=== PATIENT | male | born 1965 | race Caucasian/White ===

== ENCOUNTER 2023-09-11 11:29 | Outpatient (REF) | payer BC, SELFPAY ==
[2023-09-11 15:21] LABS: Abs Immature Grans 0.04 10^3/uL (0.0-0.06); Absolute Basophil Count 0.03 10^3/uL (0.0-0.2); Absolute Lymphocyte Count 1.32 10^3/uL (1.2-3.4); Absolute Neutrophil Count 2.25 10^3/uL (1.2-6.7); Basophils % 0.7; Eosinophils % 2.4; HCT 46.4 % (40.0-50.0); Lymphocytes % 31.9; MCH 30.9 pg (27.0-33.0); MCHC 34.5 % (32.0-36.0); MCV 90 fL (80-95); MPV 11.7 fL (8.0-11.0); Monocytes % 9.7; Neutrophils % 54.3; Platelet Count 159 10^3/uL (130-400); RBC 5.17 10^6/uL (4.36-5.78); RDW 12.5 % (11.8-14.1); RDW-SD 41.4 fL; WBC 4.14 10^3/uL (4.4-10.8)
[2023-09-11 15:48] LABS: ALT 51 U/L (16-63); AST 23 U/L (15-37); Albumin 4.2 g/dL (3.4-5.0); Alkaline Phosphatase 62 U/L (46-116); BUN 11 mg/dL (7-18); Bilirubin, Total 0.5 mg/dL (0.2-1.0); CREATININE 0.9 mg/dL (0.70-1.30); Calcium 9.5 mg/dL (8.5-10.1); Calculated LDL 81 mg/dL (<100); Chloride 101 mmol/L (98-107); Cholesterol 151 mg/dL (<200); Estimated GFR 100.24 (mL/min/1.73m2); Glucose 120 mg/dL (74-106); HDL Cholesterol 41 mg/dL (40-60); Potassium 4.2 mmol/L (3.5-5.1); Sodium 138 mmol/L (136-145); TSH (W/Ref FT4) 1.63 uIU/mL (0.36-3.74); Total Protein 7.6 g/dL (6.4-8.2); Triglyceride 149 mg/dL (<150)
[2023-09-11 16:24] LABS: Hemoglobin A1C 6.1 % (<5.7)
[2023-09-11 23:27] LABS: PSA, Screening 0.8 ng/mL (<=3.5)
== END 2023-09-11 11:30 | disposition home or self-care (01) ==
LOC: NCHCN 11:29
PROVIDERS: PCP Student in an Organized Health Care Education/Training Program; Visit Provider Student in an Organized Health Care Education/Training Program
DX: E11.9 Type 2 diabetes mellitus without complications (principal); E78.5 Hyperlipidemia, unspecified; Z12.5 Encounter for screening for malignant neoplasm of prostate
CPT/HCPCS: 80053; 80061; 84153; 83036; 84443; 85025

== ENCOUNTER 2024-03-11 09:47 | Outpatient (REF) | payer BC, SELFPAY ==
--- OUTSIDE RECORDS SUMMARY | 2024-03-11 09:52 | XMS_ITS | Encounter Summary ---
Author Organization [facility] Address [address] [place] [id number] Care Team Providers Care Liaison Officer Name Role Phone Unavailable Primary Care Provider Unavailabl e Encounter Details Date Type Department Care Team (Late st Contact Info) Description 09/11/2023 Lab Requisition [facility] - [address] [address] Outr Resulting Lab, Provider Social History Tobacco Use Types Packs/Day Years Used Date Smoking Tobacco: Never Assessed Sex and Gender Information Value Date Recorded Sex Assigned at Not on file Gender Identity Not on file Sexual Orientation Not on file documented as of this encounter Plan of Treatment Not on file documented as of this encounter Procedures Procedure Name Priority Date/Time Associated Diagnosis Comments PSA TOTAL, DIAGNOSTIC Routine 09/11/2023 10:21 EST documented in this encounter Results * PSA TOTAL, DIAGNOSTIC (09/11/2023 10:21 EST) PSA 0.8 <=3.5 ng/mL 09/11/2023 23:23 EST [facility] Blood VENOUS BLOOD / Unknown 09/11/2023 10:21 EST 09/11/2023 21:36 EST Narrative [facility] - 09/11/2023 23:23 EST NOTE: Serum PSA concentration should not be interpreted as absolute evidence for the presence or absence of malignant disease. Assayed on Siemens ADVIA Centaur XPT using chemiluminescent technology.??Values obtained by using different assay methods cannot be used interchangeably. Provider Outr Resulting Lab CHEMISTRY & BLOOD GAS ORDERABLES [facility] [address] [place] [address] documented in this encounter Visit Diagnoses Not on filedocumented in this encounter
--- OUTSIDE RECORDS SUMMARY | 2024-03-11 09:52 | XMS_ITS | Referral Summary ---
Author Organization [facility] Address [address] [place] [address] Care Team Providers Care Repack Room Worker Name Role Phone Unavailable Primary Care Provider Unavailabl e Social History Tobacco Use Types Packs/Day Years Used Date Smoking Tobacco: Never Assessed Sex and Gender Information Value Date Recorded Sex Assigned at Not on file Gender Identity Not on file Sexual Orientation Not on file Plan of Treatment Not on file
--- OUTSIDE RECORDS SUMMARY | 2024-03-11 09:52 | XMS_ITS | Clinical Summary ---
Author Organization [facility] Address [address] [place] [address] Care Team Providers Care Program Clerk Name Role Phone Unavailable Primary Care Provider Unavailabl e Social History Tobacco Use Types Packs/Day Years Used Date Smoking Tobacco: Never Assessed Sex and Gender Information Value Date Recorded Sex Assigned at Not on file Gender Identity Not on file Sexual Orientation Not on file Plan of Treatment Health Maintenance Due Date Last Done Comments Hepatitis C Screen 1965 Hepatitis B Vaccine (1 of 3 - 19+ 3-dose series) 08/14 COVID-19 Vaccine (2022-24 season) 2023
--- OUTSIDE RECORDS SUMMARY | 2024-03-11 09:52 | XMS_ITS | Data Portability ---
Author Organization [facility] Address [address] [place] [facility] [place] [address] Assessment No assessment recorded. Plan of Treatment Reminders Order Date Submit Date Provider Last Modified By Organization Details Last Modified Time Details Appointments Annual Wellness Exam 40 2023 08:00A M Michael Garrido Not available Not available Not available Nurse Visit 20 2023 08:50A M [facility] Nursing Staff Not available Not available Not available Lab lipid panel, serum 2023 024 [facility] (Registration ), [address] [place] [address] [place], [address], 09/18/2023 10:51:40 PSA, serum or plasma 2023 024 [facility] (Registration ), [address] [place] [address] [place], [address], 09/18/2023 10:51:40 CBC w/ auto diff - 2 SST, 1 LAV 2023 024 [facility] (Registration ), [address] [place] [address] [place], [address], 09/11/2023 15:23:59 CMP, serum or plasma 2023 024 [facility] (Registration ), [address] [place] [address] [place], [address], 09/11/2023 15:51:01 TSH, serum, reflex free T4 2023 024 [facility] (Registration ), [address] [place] [address] [place], [address], 09/18/2023 10:51:39 HbA1c (hemoglo bin A1c), blood 2023 024 [facility] (Registration ), [address] [place] [address] [place], [address], 09/12/2023 15:54:45 Referral None recorded . Procedures None recorded . Surgeries None recorded . Imaging None recorded . Medication Orders atorvast atin 10 mg tablet 2023 024 [email or web address] [facility], [address] [place] [address], [address], 09/11/2023 10:58:46 lisinopr il 20 mg-hydro chloroth iazide 25 mg tablet 2023 024 [email or web address] [facility], [address] [place], [address], 09/11/2023 10:58:46 metformi n 500 mg tablet 2023 024 [facility], [address] [place], [address], 09/11/2023 10:58:46 Patient Targets Encounter Date Encounter Id Patient Goals Patient Target Last Modified By Organization Details Last Modified Time Quit checking tobacco no later than 08/24/2023. [email or web address] Not available 09/11/2023 10:51:19 Patient Instructions Encounter Date Encounter Id Patient Instructions Last Modified By Organization Details Last Modified Time 09/11/2023 [id number] Continue Diabete s based diet. Encourage 50% of your plate should be vegetables, but avoiding potatoes, peas, and corn as they are starchier vegetable sources. -Engage in regular aerobic exercise that requires open mouth breathing 200-300 minutes per week. I'd suggest doing it in the middle of the day for stress relief. -Any problems or concerns, give us a call first thing in morning if same day appt. needed or you can also message through the patient portal as you have previously done. Not available 09/11/2023 10:18:17 11/21/2023 [id number] Regular schedule of ibuprofen 600 mg three times a day with food. You can also take Tylenol at the same time. -Ice and or heat. Avoid aggravating stimulus. IF this is still terrible by middle of weak, follow up with me and we can trial an injection, order an xray. [email or web address] Not available 11/21/2023 14:56:25 Reason for Referral None Reported. Results Created Date Observation Date Name Description Value Unit Range Abnormal Flag LastModifiedBy Organization Detail LastModifiedTime 09/11/19 24 09/11/2023 COMPL ETE BLOOD COUNT W/DIF F WBC 4.14 10_3/ uL 4.4-10 .8 low Not Available [address] [place], [address] 09/11/2023 15:23:59 09/11/19 24 09/11/2023 COMPL ETE BLOOD COUNT W/DIF F RBC 5.17 10_6/ uL 4.36-5 .78 normal Not Available [address] [place], [address] 09/11/2023 15:23:59 09/11/19 24 09/11/2023 COMPL ETE BLOOD COUNT W/DIF F HGB 16.0 g/dL 13.5-1 7.5 normal Not Available [address] [place], [address] 09/11/2023 15:23:59 09/11/19 24 09/11/2023 COMPL ETE BLOOD COUNT W/DIF F HCT 46.4 % 40.0-5 0.0 normal Not Available [address] [place], [address] 09/11/2023 15:23:59 09/11/19 24 09/11/2023 COMPL ETE BLOOD COUNT W/DIF F MCV 90 fL 80-95 normal Not Available [address] [place], [address] 09/11/2023 15:23:59 09/11/19 24 09/11/2023 COMPL ETE BLOOD COUNT W/DIF F MCH 30.9 pg 27.0-3 3.0 normal Not Available [address] [place], [address] 09/11/2023 15:23:59 09/11/19 24 09/11/2023 COMPL ETE BLOOD COUNT W/DIF F MCHC 34.5 % 32.0-3 6.0 normal Not Available [address] [place], [address] 09/11/2023 15:23:59 09/11/19 24 09/11/2023 COMPL ETE BLOOD COUNT W/DIF F RDW 12.5 % 11.8-1 4.1 normal Not Available [address] [place], [address] 09/11/2023 15:23:59 09/11/19 24 09/11/2023 COMPL ETE BLOOD COUNT W/DIF F platelet count 159 10_3/ uL 130-40 0 normal Not Available [address] [place], [address] 09/11/2023 15:23:59 09/11/19 24 09/11/2023 COMPL ETE BLOOD COUNT W/DIF F MPV 11.7 fL 8.0-11 .0 high Not Available [address] [place], [address] 09/11/2023 15:23:59 09/11/19 24 09/11/2023 COMPL ETE BLOOD COUNT W/DIF F neutrophils % 54.3 Not Available [address] [place], [address] 09/11/2023 15:23:59 09/11/19 24 09/11/2023 COMPL ETE BLOOD COUNT W/DIF F lymphocytes % 31.9 Not Available [address] [place], [address] 09/11/2023 15:23:59 09/11/19 24 09/11/2023 COMPL ETE BLOOD COUNT W/DIF F monocytes % 9.7 Not Available Bella [email or web address] [place], [address] 09/11/2023 15:23:59 09/11/19 24 09/11/2023 COMPL ETE BLOOD COUNT W/DIF F eosinophils % 2.4 Not Available [address] [place], [address] 09/11/2023 15:23:59 09/11/19 24 09/11/2023 COMPL ETE BLOOD COUNT W/DIF F basophils % 0.7 Not Available Scotshannon [email or web address] [place], [address] 09/11/2023 15:23:59 09/11/19 24 09/11/2023 COMPL ETE BLOOD COUNT W/DIF F immature grans % 1.0 Not Available [address] [place], [address] 09/11/2023 15:23:59 09/11/19 24 09/11/2023 COMPL ETE BLOOD COUNT W/DIF F nucleated RBC 0.0 % 0.0-0. 3 normal Not Available [address] [place], [address] 09/11/2023 15:23:59 09/11/19 24 09/11/2023 COMPL ETE BLOOD COUNT W/DIF F absolute neutrophil count 2.25 10_3/ uL 1.2-6. 7 normal Not Available [address] [place], [address] 09/11/2023 15:23:59 09/11/19 24 09/11/2023 COMPL ETE BLOOD COUNT W/DIF F absolute lymphocyte count 1.32 10_3/ uL 1.2-3. 4 normal Not Available [address] [place], [address] 09/11/2023 15:23:59 09/11/19 24 09/11/2023 COMPL ETE BLOOD COUNT W/DIF F absolute monocyte count 0.40 10_3/ uL 0.1-0. 8 normal Not Available [address] [place], [address] 09/11/2023 15:23:59 09/11/19 24 09/11/2023 COMPL ETE BLOOD COUNT W/DIF F absolute eosinophil count 0.10 10_3/ uL 0.0-0. 7 normal Not Available [address] [place], [address] 09/11/2023 15:23:59 09/11/19 24 09/11/2023 COMPL ETE BLOOD COUNT W/DIF F absolute basophil count 0.03 10_3/ uL 0.0-0. 2 normal Not Available [address] [place], [address] 09/11/2023 15:23:59 09/11/19 24 09/11/2023 COMPR EHENS AILIN METAB OLIC PANEL calcium 9.5 mg/dL 8.5-10 .1 normal Not Available [address] [place], [address] 09/11/2023 15:51:01 09/11/19 24 09/11/2023 COMPR EHENS AILIN METAB OLIC PANEL glucose 120 mg/dL 74-106 high Not Available [address] [place], [address] 09/11/2023 15:51:01 09/11/19 24 09/11/2023 COMPR EHENS AILIN METAB OLIC PANEL BUN 11 mg/dL 7-18 normal Not Available [address] [place], [address] 09/11/2023 15:51:01 09/11/19 24 09/11/2023 COMPR EHENS AILIN METAB OLIC PANEL creatinine 0.9 mg/dL 0.70-1 .30 normal Not Available [address] [place], [address] 09/11/2023 15:51:01 09/11/19 24 09/11/2023 COMPR EHENS AILIN METAB OLIC PANEL estimated GFR 100.24 mL/min /1.73m 2 Not Available [address] [place], [address] 09/11/2023 15:51:01 09/11/19 24 09/11/2023 COMPR EHENS AILIN METAB OLIC PANEL total protein 7.6 g/dL 6.4-8. 2 normal Not Available [address] [place], [address] 09/11/2023 15:51:01 09/11/19 24 09/11/2023 COMPR EHENS AILIN METAB OLIC PANEL albumin 4.2 g/dL 3.4-5. 0 normal Not Available [address] [place], [address] 09/11/2023 15:51:01 09/11/19 24 09/11/2023 COMPR EHENS AILIN METAB OLIC PANEL bilirubin, total 0.5 mg/dL 0.2-1. 0 normal Not Available [address] [place], [address] 09/11/2023 15:51:01 09/11/19 24 09/11/2023 COMPR EHENS AILIN METAB OLIC PANEL alk phos 62 U/L 46-116 normal Not Available [address] [place], [address] 09/11/2023 15:51:01 09/11/19 24 09/11/2023 COMPR EHENS AILIN METAB OLIC PANEL sodium 138 mmol/ L 136-14 5 normal Not Available [address] [place], [address] 09/11/2023 15:51:01 09/11/19 24 09/11/2023 COMPR EHENS AILIN METAB OLIC PANEL potassium 4.2 mmol/ L 3.5-5. 1 normal Not Available [address] [place], [address] 09/11/2023 15:51:01 09/11/19 24 09/11/2023 COMPR EHENS AILIN METAB OLIC PANEL chloride 101 mmol/ L 98-107 normal Not Available [address] [place], [address] 09/11/2023 15:51:01 09/11/19 24 09/11/2023 COMPR EHENS AILIN METAB OLIC PANEL CO2 28.0 mmol/ L 21.0-3 2.0 normal Not Available [address] [place], [address] 09/11/2023 15:51:01 09/11/19 24 09/11/2023 COMPR EHENS AILIN METAB OLIC PANEL anion gap 9.0 mmol/ L 3-11 normal Not Available [address] [place], [address] 09/11/2023 15:51:01 09/11/19 24 09/11/2023 COMPR EHENS AILIN METAB OLIC PANEL AST 23 U/L 15-37 normal Not Available [address] [place], [address] 09/11/2023 15:51:01 09/11/19 24 09/11/2023 COMPR EHENS AILIN METAB OLIC PANEL ALT 51 U/L 16-63 normal Not Available [address] [place], [address] 09/11/2023 15:51:01 09/11/19 24 09/11/2023 LIPID 2 cholesterol 151 mg/dL <200 Not Available [address] [place], [address] 09/11/2023 15:51:02 09/11/19 24 09/11/2023 LIPID 2 triglyceride 149 mg/dL <150 Not Available [address] [place], [address] 09/11/2023 15:51:02 09/11/19 24 09/11/2023 LIPID 2 HDL cholesterol 41 mg/dL 40-60 Not Available [address] [place], [address] 09/11/2023 15:51:02 09/11/19 24 09/11/2023 LIPID 2 calculated LDL 81 mg/dL <100 Not Available [address] [place], [address] 09/11/2023 15:51:02 09/11/19 24 09/11/2023 TSH (W/RE F FT4) TSH (w/ref FT4) 1.63 uIU/m L 0.36-3 .74 normal Not Available [address] [place], [address] 09/11/2023 15:51:03 09/11/19 24 09/11/2023 HEMOG LOBIN A1C hemoglobin A1C 6.1 % <5.7 high Not Available [facility] [address] [facility] , [facility] [place], [address] 09/11/2023 16:28:05 09/11/19 24 09/11/2023 PSA, GUILLERMO GOMES PSA, screening 0.8 NG/mL <=3.5 Not Available [place] [id number] [facility] , [facility] [place], [address] 09/12/2023 09:21:21 09/12/19 elect bowen tapiagr am No observ ation record ed. Not Available 09/12/2023 16:12:08 Result Notes None recorded. Problems Name Status Onset Date Resolution Date Notes Provider Name and Address Organization Details Recorded Time Essential hypertension Active 09/11/19 24 FABIOLA ELISE MA [facility], [facility] 09/11/2023 07:25:09 Type 2 diabetes mellitus without complication Active 09/11/[address], [place], [address] , [facility] 09/11/2023 09:58:35 Hyperlipidemia Active 09/11/[address], [place], [address] , [facility] 09/11/2023 09:58:54 Tension-type headache Active 09/11/[address], [place], [address] , [facility] 09/11/2023 09:59:13 Pain of left shoulder joint Active 11/24/[address], [place], [address] , [facility] 11/24/2023 08:02:33 Tobacco dependence caused by chewing tobacco Active 03/11/[address], [place], [address] , [facility] 03/11/2024 07:02:20 Erectile dysfunction Active 03/11/20 24 [address], [place], [address] , [facility] 03/11/2024 08:55:04 Problem Notes None recorded. Procedures Surgical History Date Name Laterality Status Provider Name and Address Organization Details Recorded Time vasectomy completed BRIAN HOLLOWAY, [facility] 09/11/2023 09:00:25 repair of joint of right knee completed [address], [place], [address], [facility] 09/11/2023 09:51:03 Imaging Results Imaging Date Name Status LastModified by Organization Details LastModified Time 09/12/2023 electrocardiogram completed [id number] Informa tion not available 09/12/2023 16:12:08 Procedure Notes None recorded. Medical Equipment None Reported. Allergies No known drug allergies Medications Name Sig Start Date Stop Date Status Note LastModified by Organization Details LastModified Time metformin 500 mg tablet Take 1 tablet every day by oral route in the morning . 2023 active Not Available Not Available Not Avai lable atorvastatin 10 mg tablet Take 1 tablet every day by oral route at bedtime . 2023 active Not Available Not Available Not Avai lable lisinopril 20 mg-hydrochlor othiazide 25 mg tablet Take 1 tablet every day by oral route in the morning . 2023 active Not Available Not Available Not Avai lable Natural Psyllium Laxative 28.3 % oral powder Take by oral route as needed. active Not Available Not Available No t Available tadalafil 10 mg tablet Take 1 tablet every day by oral route as needed. 03/11 completed Not Available Not Available Not Available tadalafil 20 mg tablet Take 1 tablet every day by oral route. active Not Available Not Available No t Available multivitamin 1 tab by mouth daily active Not Available Not Available No t Available Vitals Date Recorded Body height Body mass index (BMI) Body weight Body temperature Oxygen saturation Oxygen saturation in Arterial blood by Pulse oximetry Heart rate Systolic blood pressure Diastolic blood pressure Provider Name and Address Organization Details Last Updated DateTime 4 173.99 cm 31.7 kg/m2 44384.8 6 g 98.2 [degF] 100 % 100 % 79 /min 128 mm[Hg] 74 mm[Hg] FABIOLA ELISE MA [facility] 4 08:51:11 Date Recorded Body height Body mass index (BMI) Body weight Body temperature Respiratory rate Systolic blood pressure Diastolic blood pressure Provider Name and Address Organization Details Last Updated DateTime 4 173.99 cm 33.3 kg/m2 830534. 51 g 98.1 [degF] 16 /min 130 mm[Hg] 70 mm[Hg] KAMRAN RODRÍGUEZ RN [facility] 4 14:02:04 Date Recorded Body height Body mass index (BMI) Body weight Body temperature Oxygen saturation Oxygen saturation in Arterial blood by Pulse oximetry Heart rate Systolic blood pressure Diastolic blood pressure Provider Name and Address Organization Details Last Updated DateTime 4 173.99 cm 32.6 kg/m2 58191.7 g 98.1 [degF] 98 % 98 % 77 /min 134 mm[Hg] 90 mm[Hg] FABIOLA ELISE MA [facility] 4 08:03:53 Social History Question Answer Notes LastModified by Organizat ion Details LastModified Time Tobacco Smoking Status Former Smoker FABIOLA ELISE MA null, [facility] 09/11/2023 08:52:32 Do You Have An Advance Directive? Yes Information n ot available 09/11/2023 Is Blood Transfusion Acceptable In An Emergency? Yes Information not available 09/11/2023 What Is Your Code Status? DNR Information not available 09/11/2023 What Type Of Diet Are You Following? REGULAR Information n ot available 09/11/2023 How Many Days Of Moderate To Strenuous Exercise, Like A Brisk Walk, Did You Do In The Last 7 Days? 3 Information not available 09/11/2023 How Many Times Per Week Do You Exercise? 3-4 Times Per Week Information not available 09/11/2023 What Do You Do For Fun? Home Improvement, Dog Training Information not available 09/11/2023 Would You Say That, In General, Your Health Is Good Information not available 09/11/2023 How Often Does Anyone, Including Family, Physically Hurt You? Never Information not available 09/11/2023 How Often Does Anyone, Including Family, Insult Or Talk Down To You? Never Information no t available 09/11/2023 How Often Does Anyone, Including Family, Threaten You With Harm? Never Information not available 09/11/2023 How Often Does Anyone, Including Family, Scream Or Curse At You? Never Information not available 09/11/2023 Within The Past 12 Months, You Worried That Your Food Would Run Out Before You Got Money To Buy More. Never True Information n ot available 09/11/2023 Within The Past 12 Months, The Food You Bought Just Didn't Last And You Didn't Have Money To Get More. Never True Information not available 09/11/2023 How Hard Is It For You To Pay For The Very Basics Like Food, Housing, Medical Care, And Heating? Would You Say It Is: Not Hard At All Information not available 09/11/2023 In The Past 12 Months, Has Lack Of Reliable Transportation Kept You From Medical Appointments, Meetings, Work Or From Getting Things Needed For Daily Living? No Information not available 09/11/2023 What Is Your Housing Situation Today? I Have Housing. Information not available 09/11/2023 Who Do You Live With? Information not available 09/11/2023 How Often In The Past Year Have You Used Marijuana (including Smoking, Vaping, Dabbing, Or Edibles)? Never Information not available 09/11/2023 How Often In The Past Year Have You Used Prescription Medications That Were Not Prescribed To You? Never Information not available 09/11/2023 How Often In The Past Year Have You Taken Your Own Prescription Medication More Than The Way It Was Prescribed Or For Different Reasons Than Its Intended Purpose? Never Information not available 09/11/2023 How Often In The Past Year Have You Used Other Drugs (for Example, Heroin, Cocaine, Meth, Salvia, Inhalants)? Never Information not available 09/11/2023 Have You Ever Used IV Drugs? No Information not available 09/11/2023 Date Of Most Recent SBINS 03/11/2024 Information not available 03/11/2024 Do You Have A Medical Power Of Surveillance Dual Rate Officer? Yes Information not available 09/11/2023 What Was The Date Of Your Most Recent Tobacco Screening? 03/11/2024 Information n ot available 03/11/2024 What Is Your Relationship Status? Information not available 09/11/2023 Are You Sexually Active? Yes Information not available 09/11/2023 How Much Tobacco Do You Smoke? No Information not available 09/11/2023 How Many Years Have You Smoked Tobacco? 12 Information not available 09/11/2023 Do You Have Any Dietary Restrictions? No Information not available 09/11/2023 Sex: Male Functional Status Question Answer Note LastModified by Organization D etails LastModified Time What is your exercise level? Moderate Information not available 09/11/2023 Mental Status None recorded. Family History Relationship Description Onset Age of this Age Resolved Age Notes Notes:Dad: [place] at 43, [place] at 7 4 was fatal, Dmii on insulin, CKD, HTN. Paternal GF: Cancer, Asbestos related cancer Pat GM: Aneurysm of brain at 84. Pat Uncle: HIV related complications fatal from early 80's blood transfusion. Mother: still alive. Hx. of Pericarditis about 3-4 years ago. Has had TIA, Obese, NAFLD. Pat Gmother: Still alive, 98-YO. Medical History No medical history recorded. Immunizations Vaccine Type Date Status Provider Name and Address Organization Details Recorded Time Influenza, split virus, quadrivalent, PF 09/11/[address], [place], [address], [facility]. 09/11/2023 10:58:46 COVID-19, mRNA, LNP-S, PF, maricarmen-sucrose, 30 mcg/0.3 mL 09/11/2023 completed FABIOLA ELISE MA null, [place] - [facility]. 09/11/2023 14:40:01 SARS-COV-2 (COVID-19) vaccine, UNSPECIFIED 11/23/2020 completed BRIAN HOLLOWAY, [facility]. 09/11/2023 07:19:50 SARS-COV-2 (COVID-19) vaccine, UNSPECIFIED 12/14/2020 completed FABIOLA ELISE MA null, [facility] 09/11/2023 07:19:57 SARS-COV-2 (COVID-19) vaccine, UNSPECIFIED 08/28/2021 completed FABIOLA ELISE MA null, [facility] 09/11/2023 07:20:02 SARS-COV-2 (COVID-19) vaccine, UNSPECIFIED 05/04/2022 completed BRIAN HOLLOWAY, [facility] 09/11/2023 07:20:07 influenza, unspecified formulation 11/11/2018 completed FABIOLA ELISE MA null, [facility]. 09/11/2023 07:20:25 influenza, unspecified formulation 05/29/2020 completed FABIOLA ELISE MA null, [facility] 09/11/2023 07:20:30 influenza, unspecified formulation 08/28/2021 completed FABIOLA ELISE MA null, [facility] 09/11/2023 07:20:34 influenza, unspecified formulation 08/29/2022 completed FABIOLA ELISE MA null, [facility]. 09/11/2023 07:20:39 influenza, unspecified formulation 06/30/2018 completed FABIOLA ELISE MA null, [facility] 09/11/2023 07:21:05 influenza, unspecified formulation 05/22/2020 completed BRIAN HOLLOWAY, [facility]. 09/11/2023 07:21:44 Tdap 08/29/2022 completed FABIOLA ELISE MA null, [facility]. 09/11/2023 07:22:00 Past Encounters Encounter ID Performer Location Encounter Start Date Encounter Closed Date Diagnosis/Indication Diagnosis SNOMED-CT Code [id number] [address] [facility] [address] [place] [address] 09/11/2023 08:42:32 09/11/2023 10:40:44 Administration of influenza vaccine [id number] Administra tion of SARS-CoV-2 antigen vaccine 128105358 Type 2 jordan betes mellitus without complication 622425146 Hyperlipidemia 96895999 Tension-type headache 39 3559135 Screening for malignant neoplasm of prostate 210736087 Tobacco de pendence caused by chewing tobacco 74155023173566 107 Essential hypertension 65516502 [id number] [address] [facility] [address] [place] [address] 11/21/2023 13:54:44 11/21/2023 15:08:10 Pain of left shoulder joint 15910019669132 739 [id number] Lu Han [facility] [address] [place] [address] 03/11/2024 07:43:50 03/11/2024 09:33:34 Adult health examination 040558690 Tobacco de pendence caused by chewing tobacco 29724257291830 107 Essential hypertension 03856350 Body mass index 30+ - obesity 260540324 Active or passive immunization 267491637 Type 2 jordan betes mellitus without complication 842614770 Erectile dysfunction 860 572039 Hepatitis C screening 41 9118140 HIV screening 164626188 Health Concerns Section Related Observation LastModified by Organization Detai ls LastModified Time None Recorded Concern Status LastModified by Organization Details LastModified Time None Recorded Advance Directives Directive Y: Payers Encounter Date Sequence Insurance Name Policy Number Policy Horton Covered Member ID Horton Member ID Guarantor Name 09/11/2023 1 [place] [facility] [id number] Dilip Benedict [id number] Александр Benedict 11/21/2023 1 [place] [facility] [id number] Dilip Benedict [id number] Александр Benedict Notes Date Note Type Note Provider Name and Address Organization Details Recorded Time 09/11/2023 text/html HPI Notes: Pt, 58-M, hx. of Dmii, oral tobacco use, HTN, back pain, headache, here to establish care. We do not have prior medical records at this time. He does use the PORTAL to communicate. Dmii: Pt. is on Lisinopril/HCTZ, Metformin 500 HCT, MG qday, and Atorvastrtin 10 mg. Pt. reports last Hga1c. He reports he would do August and February visits. Pt. reports Hba1c has typically been below 7. He has been on Metformin for 5-7 years. Ht reports daily Metamucil. Denies loose stools, hx. of low magnesium. Pt. denies any skin changes, foot numbness. HTN: BP today 128/74. Pt. reports BP is about right for him. Pt. reports he does have a dry chronic cough that he developed after Covid. Pt. states this is about his typical BP. No lightheadedness. Frequency of headache described below. Headache: Pt. reports hx. of migraine every other month. He reports tension and stress bring it on. He reports micromassage does help. Pt. endorses photosensitivity, but no auditory disturbance, pt denies nauseous. He lays down and releaxes which helps. Pt. reports he will go to sleep and it go away in a few hours. Dry Chronic Cough: Pt. reports he has had this 2.5 years after being Covid infected with Omicron. He started Lisinopril after and it had no change in his cough. Difficulty urinating/Prostate Cancer Screening: Pt. states it has not been done. He does endorse that he has noticed within the last year that when he finishes urinating, if he waits a second, he can sometimes push more urine out. He denies any painful defecation, bleeding with stools, scrotal pain, post void dribbling. Chewing tobacco: Pt. reports he has been doing this since he was 10 or 11. When he smoked he dipped less. He is currently trying to do an herbal snuff that is all natural, but is toggling back and forth between types. He has goal of cutting back and then quitting within 12 months. Pt. reports reports his dentition is okay, he has followed a dentist. He denies any current gum erosion, no lesions ulcers or sores. Drug Use History: Pt. reports PMH of heavy cocaine abuse. Pt. reports he stopped all drug use when he was 21 years old. He additionally did a lot of psychodelics. He denies marijuana use, although he states he has accidentally ingested edibles his made twice in the last 5-years. Alcohol Use: About 4 drinks per week. Standing Martini on Friday nights. Colon Cancer Screening: Pt. reports last Cologuard was 2022. 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 He did well with his second start up. [address], [place], [id number], [facility], [facility]. 09/11/2023 10:58:53 11/21/2023 text/html HPI Notes: Pt., 58-M, here with complaint of acute left shoulder pain. He reports he moved a large bedframe with his yesterday, it wasn't a straing, there wasn't anything akward about it since he had help to move it, but woke up this morning with acute left shoulder pain. He states abducting his left arm is not happening due to pain as well as externally rotating it. [address], [place], [id number], [facility], [facility]. 11/24/2023 08:04:09
[2024-03-11 20:12] LABS: COMMENT (LAB VIEW ONLY) 129.02 mg/dL; Microalb ug/mg Crea 4.3 ug/mg Cr
== END 2024-03-11 09:48 | disposition home or self-care (01) ==
LOC: NCHCN 09:47
PROVIDERS: PCP Student in an Organized Health Care Education/Training Program; Visit Provider Student in an Organized Health Care Education/Training Program
DX: E11.9 Type 2 diabetes mellitus without complications (principal)
CPT/HCPCS: 82043; 82570

== ENCOUNTER 2024-03-15 09:06 | Outpatient (REF) | payer BC, SELFPAY ==
[2024-03-16 19:37] LABS: Hepatitis C Ab w Rflx HCV PCR Negative (Negative)
[2024-03-18 11:53] LABS: HIV-1/2 Ag & Ab Screen Negative (Negative)
== END 2024-03-15 09:07 | disposition home or self-care (01) ==
LOC: NCHCN 09:06
PROVIDERS: PCP Student in an Organized Health Care Education/Training Program; Visit Provider Student in an Organized Health Care Education/Training Program
DX: Z11.59 Encounter for screening for other viral diseases (principal); Z11.4 Encounter for screening for human immunodeficiency virus [HIV]
CPT/HCPCS: 86803; 87389

== ENCOUNTER 2024-10-19 10:57 | Outpatient (REF) | payer BC, SELFPAY ==
[2024-10-19 17:26] LABS: Hemoglobin A1C 6.8 % (<5.7)
[2024-10-19 17:27] LABS: Anion Gap 9.1 mmol/L (3-11); BUN 16 mg/dL (7-18); CO2 26.9 mmol/L (21.0-32.0); CREATININE 0.9 mg/dL (0.70-1.30); Calcium 9.8 mg/dL (8.5-10.1); Chloride 104 mmol/L (98-107); Estimated GFR 99.62 (mL/min/1.73m2); Glucose 132 mg/dL (74-106); Potassium 4.4 mmol/L (3.5-5.1); Sodium 140 mmol/L (136-145)
== END 2024-10-19 10:58 | disposition home or self-care (01) ==
LOC: NCHCN 10:57
PROVIDERS: PCP Student in an Organized Health Care Education/Training Program; Visit Provider Student in an Organized Health Care Education/Training Program
DX: E11.9 Type 2 diabetes mellitus without complications (principal); I10 Essential (primary) hypertension
CPT/HCPCS: 80048; 83036

== ENCOUNTER 2025-03-15 13:04 | Outpatient (REF) | payer BC, SELFPAY ==
[2025-03-15 17:15] LABS: COMMENT (LAB VIEW ONLY) 339.29 mg/dL; Microalb ug/mg Crea 5.2 ug/mg Cr
== END 2025-03-15 13:05 | disposition home or self-care (01) ==
LOC: NCHCN 13:04
PROVIDERS: PCP Student in an Organized Health Care Education/Training Program; Visit Provider Student in an Organized Health Care Education/Training Program
DX: E11.9 Type 2 diabetes mellitus without complications (principal)
CPT/HCPCS: 82043; 82570